=== PATIENT | male | born 1995 | race Caucasian/White ===

== ENCOUNTER 2016-09-09 11:02 | Inpatient (IN) | payer BC, OTHER ==
[~2016-09-09] VITALS: Ht 188 cm; Wt 89.8 kg
[2016-09-10 14:45] VITALS: BP 141/88
[2016-09-10] MEDS ORDERED: THIAMINE HCL 200 MG/2 ML VIAL IM ONE (14:45)
[2016-09-10] MEDS ORDERED: LOPERAMIDE HCL 2 MG CAPSULE PO PRN ×2 (14:45)
[2016-09-10] MEDS ORDERED: ACETAMINOPHEN 325 MG TABLET PO PRN (14:45)
[2016-09-10] MEDS ORDERED: MIRALAX 17 GM POWD.PACK PO PRN (14:45)
[2016-09-10] MEDS ORDERED: ONDANSETRON ODT 4 MG TAB.RAPDIS SL PRN (14:45)
[2016-09-10] MEDS ORDERED: METHOCARBAMOL 750 MG TABLET PO PRN (14:45)
[2016-09-10] MEDS ORDERED: BUPRENORPHINE HCL 2 MG TAB.SUBL SL PRN (14:45)
[2016-09-10] MEDS ORDERED: LORAZEPAM 2 MG/1 ML VIAL IM PRN (14:45)
[2016-09-10] MEDS ORDERED: MAGNESIUM HYDROXIDE 30 ML LIQUID UDC PO PRN (14:45)
[2016-09-10] MEDS ORDERED: DICYCLOMINE HCL 20 MG TABLET PO PRN (14:45)
[2016-09-10] MEDS ORDERED: ONDANSETRON 4 MG/2 ML VIAL IM PRN (14:45)
[2016-09-10] MEDS ORDERED: MAG HYDROX/AL HYDROX/SIMETH 30 ML LIQUID UDC PO PRN (14:45)
[2016-09-10] MEDS ORDERED: LORAZEPAM 1 MG TABLET PO PRN (14:45)
--- NOTE | 2016-09-10 15:00 | NUR ---
Pre-admission Note: Patient received in intake at this time. Alert and oriented x 4. Speech is fast and pressured. Appears disheveled and anxious. Pupils dilated. Able to answer questions appropriately regarding the admission process. Able to answer questions readily regarding the admission process. Patient is able to follow directions appropriately. Denies any allergies. Wishes to be full code. Regular diet. Denies having any seizure history. Patient states that he is here to detox off of opiate, benzodiazepines and methamphetamine. Denies having a PCP. Able to provide urine for UDS. VS BP 141/88, Temp 97.8, RR 17, Pulse 101, RR 20, O2 sat at 98% RA. Addendum: 09/10/16 at 1707 by JENNIFER ARZOLA LVN Pre-admin time is at 1445
--- NOTE | 2016-09-10 15:01 | NUR ---
Admission Note: Admitted a 21 year old male who states that he is here for to detox from opiate, benzodiazepine and methamphetamine under the care of Dr. Fernando Mohan. Alert and oriented x 4. No changes in LOC noted from baseline. Still appears intoxicated but able to ambulate with slow steady gait. Respirations even and unlabored. No SOB noted. Lung sounds clear bilaterally. Skin warm and dry to touch. Body search done. No contraband was found. Skin check done. No skin breakdown noted. Denies any complain of abdominal pain or discomfort. No complains of N/V/D or constipation noted. Reports LBM this am. Bladder non-distended. No complains of dysuria noted. Able to provide urine for UDS. Denies any past medical hx. Has family hx of substance abuse in the family, where his dad was abusing opiates, mainly Heroin. Patient states that he cannot remember his longest period of sobriety but verbalizes that he also does not remember being sober. He reports that has been to treatment 3x since he was 16 years old. Patient was provided education on the unit's policies and protocols. Explained use of call lights and fall preventions. Substance Use History: 1. Heroin - since 14 years old. Injects 3 grams daily x 4 months. Last use was on 09/10/2016 1.5 grams 2. Subaxone - since 13 years old. Sublingually takes 16mg daily when Heroin is not available. Last use was on 09/07/2016 16mg 3. Klonopin - since 14 years old. Orally takes 5 bars each. Last use was on 09/08/2016 x 5 bars 4. Xanax - since 14 years old. Orally takes 2 to 4 bars. Last use was on 09/10/2016 at 0800 3 bars 5. Methadone - since 14 years old. Orally takes 140 mg PO. Last taken "few months ago" when heroin is not available. 6. Methamphetamine - since 14 years old. Injects 1/16 grams daily. Last use was on 09/09/2016 at 0000, 1/16 grams. Treatment History 1. [facility] x 2 weeks. at 16 years old 2. [facility] x 1 month and a half at 17 years old 3. [facility] x [address] Mohan in and examined the patient and orders entered. Patient will be started on 5-day Subutex and 5-day Ativan taper to be started in AM. Orders noted and carried out.
[2016-09-10] MEDS: CLONIDINE HCL 0.1 MG TABLET PO PRN (15:41)
--- NOTE | 2016-09-10 15:41 | NUR ---
Clonidine 0.1mg PO given: Patient was noted with anxiety, chills, restlessness and mild sweats. PRN Clonidine 0.1mg PO given including scheduled Gabapentin and scheduled Vitamin B1 injection.
[2016-09-10] MEDS: GABAPENTIN 300 MG CAPSULE PO SCH ×2 (15:45→21:01)
[2016-09-10 15:52] LABS: BASOPHILS % (AUTO) 0.5 % (0.0-2.0); EOSINOPHILS % (AUTO) 0.6 % (0.0-7.0); HEMOGLOBIN 14.9 G/DL (14.0-18.0); LYMPHOCYTES # (AUTO) 2.6 K/UL (0.8-4.8); LYMPHOCYTES % (AUTO) 34.2 % (20.5-51.5); MEAN CORPUSCULAR HEMOGLOBIN 29.8 UUG (27.0-31.0); MEAN CORPUSCULAR HGB CONC 34 g/dL (32.0-37.0); MEAN CORPUSCULAR VOLUME 88.1 FL (82.0-92.0); MONOCYTES # (AUTO) 0.5 K/UL (0.1-1.30); NEUTROPHILS # (AUTO) 4.6 K/UL (1.8-8.9); NEUTROPHILS % (AUTO) 58.7 % (38.5-71.5); PLATELET COUNT (AUTO) 290 K/UL (150-450); WHITE BLOOD COUNT (AUTO) 7.7 K/UL (4.0-11.2)
[2016-09-10 16:00] VITALS: BP 137/85
[2016-09-10 16:17] LABS: ALANINE AMINOTRANSFERASE 22 U/L (16-63); ALKALINE PHOSPHATASE 115 U/L (50-136); CARBON DIOXIDE 32 mmol/L (21-32); CHLORIDE 104 mmol/L (98-107); CREATININE 0.8 mg/dL (0.6-1.3); GLUCOSE 110 mg/dL (74-106); MAGNESIUM 2.1 mg/dL (1.8-2.4); TOTAL PROTEIN, SERUM 8.2 g/dL (6.4-8.2); UREA NITROGEN, BLOOD 12 mg/dL (7-18)
[2016-09-10 16:20] LABS: ETHANOL < 3 MG/DL (0-0)
[2016-09-10 16:32] LABS: ASPARTATE AMINOTRANSFERASE 38 U/L (15-37)
--- NOTE | 2016-09-10 16:41 | NUR ---
Re-assessment: Per patient, PRN Clonidne was effective in reducing patient's chills, anxiety, sweats and restlessness. VS remain stable.
[2016-09-10 17:03] LABS: THYROID STIMULATING HORMONE 1.966 mIU/mL (0.358-3.740)
[2016-09-10 17:34] LABS: *AMPHETAMINE, URINE POSITIVE (NEGATIVE); *BARBITURATE, URINE NEGATIVE (NEGATIVE); *CANNABINOID, URINE NEGATIVE (NEGATIVE); *COCCAINE, URINE NEGATIVE (NEGATIVE); *OPIATE, URINE POSITIVE (NEGATIVE); *PHENCYCLIDINE SCREEN,URINE NEGATIVE (NEGATIVE)
--- NOTE | 2016-09-10 18:45 | NUR ---
End of Shift Notes: Patient is a 21 year old male admitted for opiate/BZO and methamphetamine dependence who was placed on a 5-day Ativan and 5-day Subutex taper as ordered which will be started today. Denies any past medical hx. NKA. FULL CODE. Regular diet. On fall and seizure precaution. Initial COWS 6/CIWA 3. Last COWS 3/CIWA 1. PRN Clonidine was given at 1500 for restlessness, anxiety, sweats and chills with help after 1 hour. Unable to participate in group due to his withdrawal symptoms. Will continue to monitor closely.
--- NOTE | 2016-09-10 19:15 | NUR ---
Start of Shift Note: Patient is a 21 y/o male admitted today 09/10/16 for Opiate and Benzo dependence. Patient denies any past medical history. No seizure history noted. Patient is on a regular diet with no known food and drug allergies noted. Patient is placed on a 5-day Subutex and 5-day Ativan taper to be started tomorrow. Skin noted to be intact. Last COWS 3 CIWA 1. Pt was given PRN Clonidine during day shift. Patient is alert & oriented x4. No shortness of breath noted. Respiration even & unlabored. Abdomen soft & non-distended. Nausea noted with no episode of vomiting. Patient complains of 3/10 backache & mild backache. Pt presented with stuffy nose, stomach cramps, anxiety and agitation. Patient noted with slight hand tremors. No hallucinations. Patient denies SI/HI. Safety precautions are in place. Bed locked in lowest position. Both side rails up. Call light within pt's reach. Will continue to monitor patient.
[2016-09-10 20:00] VITALS: BP 130/86
[2016-09-10] MEDS: IBUPROFEN 600 MG TABLET PO PRN (21:01)
[2016-09-10] MEDS: diphenhydrAMINE 50 MG CAPSULE PO PRN (21:01)
--- NOTE | 2016-09-10 21:01 | NUR ---
PRN Administration Patient presented with complains of nausea, mild headache, anxiety & agitation. Patient noted with slight tremors. COWS 9 CIWA 8 noted. Vitals taken. B/P 130/86, HR 112. Pt also requesting for medication to help him sleep. PRN Ativan 1 mg, Zofran, Motrin, & Benadryl administered as ordered. Will monitor for effectiveness of medication.
--- NOTE | 2016-09-10 22:01 | NUR ---
PRN Reassessment Patient still awake at this time. Patient lying in bed and appears calm and comfortable. Patient verbalized decreased in anxiety, improved nausea & relief in headache. Patient hand tremors felt. No hallucinations noted. COWS 6 CIWA 4 noted. Will continue to monitor patient.
[2016-09-11] VITALS: BP 115/67
[2016-09-11 04:00] VITALS: BP 94/52
--- NOTE | 2016-09-11 07:40 | NUR ---
End of Shift Note: Patient is a 21 y/o male admitted yesterday 09/10/16 for Opiate and Benzo dependence. Patient denies any past medical history. No seizure history noted. Patient is on a regular diet with no known food and drug allergies noted. Full Code status noted. Fall and Seizure precaution noted. Patient is on a 5-day Subutex and 5-day Ativan taper to be started today. Last COWS 6 CIWA 4. Patient was given PRN Ativan, Zofran, Motrin & Benadryl @ 2101. PRN medications were effective after 1 hour. Pt was compliant with medications. No significant change was noted. Patient remained stable and Vitals remains WNL. Patient was able to sleep for a total of 6 hours. Pt consumed 500ml of fluids. Pt hasnt voided the whole shift nor had a bowel movement. All needs attended & met. Safety precautions are in place. Will endorse pt to day shift nurse.
--- NOTE | 2016-09-11 07:45 | NUR ---
START OF SHIFT Rcvd endorsement from ongoing nurse, client is in room, a/o to name, time, place. He presents with anxious mood, states "I was not able to sleep, my whole body aches, I feel horrible." He reports, chills, stomach cramps, fatigue. Enlarged pupils, flushed face, diaphoresis noted. Encourage client to increase fluid intake as tolerated to facilitate detox. Encourage to attend group therapy for skills to maintain sobriety. PRN Ativan CIWA 9 after an hr 4, Zofran for nausea, Motrin boy aches, & Benadryl for inability to sleep @ 2101. He is to start Ativan/ Subutex taper this am. Client admitted 09/10/16 for Opiate and Benzodiazepine withdrawal. Client denies any seizure history. NKA. Last COWS 6/CIWA 4. Call light within reach. Safety measures rendered. Will continue to monitor.
[2016-09-11] MEDS: MULTIVITAMINS,THERAPEUTIC TABLET PO SCH (08:52)
[2016-09-11] MEDS: FOLIC ACID 1 MG TABLET PO SCH (08:52)
[2016-09-11] MEDS: LORAZEPAM 1 MG TABLET PO SCH ×4 (08:52→21:39)
[2016-09-11] MEDS: GABAPENTIN 300 MG CAPSULE PO SCH ×3 (08:52→21:39)
[2016-09-11] MEDS: BUPRENORPHINE HCL 2 MG TAB.SUBL SL SCH ×4 (08:52→21:39)
[2016-09-11] MEDS: DOCUSATE SODIUM 250 MG CAPSULE PO SCH (08:52)
[2016-09-11] MEDS: THIAMINE HCL 100 MG TABLET PO SCH (08:52)
[2016-09-11 08:55] VITALS: BP 120/69
[2016-09-11] MEDS ORDERED: 5 DAY TAPER BUPRENORPHINE -SERENITY PROTOCOL SL PRN (09:00)
[2016-09-11] MEDS ORDERED: 5 DAY TAPER OF LORAZEPAM -SERENITY PROTOCOL PO PRN (09:00)
[2016-09-11] MEDS ORDERED: TUBERCULIN,PURIF.PROT.DERIV. 5 TU/0.1 ML TEST ID ONE (09:00)
[2016-09-11 12:53] VITALS: BP 141/76
[2016-09-11 14:11] LABS: HEPATITIS B SURFACE AG Negative (Negative)
[2016-09-11 16:05] VITALS: BP 123/69
[2016-09-11] MEDS: CLONIDINE HCL 0.1 MG TABLET PO PRN (16:12)
--- NOTE | 2016-09-11 16:12 | NUR ---
TIKA Bentyl, Clonidine, Robaxin Client reports abdominal cramps, cold/chills, irritability and anxiety, Bentyl 20mg, Clonidine 0.1mg, Robaxin 750mg PO administered. Call light within reach. Will continue to monitor. Addendum: 09/11/16 at 1642 by FIDEL SHORT RN Robaxin given for generalized muscle pain 09/27.
--- NOTE | 2016-09-11 17:12 | NUR ---
Reassessment PRElizabeth Mireles, Clonidine, Robaxin, noted effective Client reports relief of abdominal cramps, cold/chills, he appears less irritable and less anxious, he is walking with his peers to the cafeteria for dinner.
--- NOTE | 2016-09-11 19:15 | NUR ---
Start of Shift Note: Patient is a 21 y/o male admitted today 09/10/16 for Opiate and Benzo dependence. Patient denies any past medical history. No seizure history noted. Patient is on a regular diet with no known food and drug allergies noted. Patient is on a 5-day Subutex and 5-day Ativan taper and tolerating well. Skin noted to be intact. Last COWS 13 CIWA 8. Pt was given PRN Clonidine, Bentyl & Robaxin during day shift. Patient is alert & oriented x4. No shortness of breath noted. Respiration even & unlabored. Abdomen soft & non-distended. No nausea noted. Patient presented with complains of 7/10 backache, chills, runny nose, diarrhea, anxiety & mild headache. Patient noted with slight hand tremors. No hallucinations. Patient denies SI/HI. Patient refused TB skin test. CXR was done with no acute pulmonary disease noted. Safety precautions are in place. Bed locked in lowest position. Both side rails up. Call light within pt's reach. Will continue to monitor patient.
--- NOTE | 2016-09-11 19:20 | NUR ---
END OF SHIFT Endorsed client to incoming nurse, client is currently lying in bed, he is a/o x 4, he presents with depressed mood, flat affect. PRN Robaxin for muscle pain, Bentyl abdominal cramps, Clonidine for irritability, chills and anxiety, noted effective. Last Ativan/Subutex taper medication give, client was able to go down to the cafeteria for dinner after meds. 1st of 5 day Ativan/Subutex taper, tolerating well. Reinforcement needed on group therapy for skills to maintain sobriety, he stated "I'm coming off a lot of drugs, maybe tomorrow." Adequate intake 1600mL, void x 4. Call light within reach. Safety measures rendered.
[2016-09-11 20:00] VITALS: BP 118/78
[2016-09-11] MEDS: IBUPROFEN 600 MG TABLET PO PRN (21:39)
[2016-09-11] MEDS: diphenhydrAMINE 50 MG CAPSULE PO PRN (21:39)
--- NOTE | 2016-09-11 21:39 | NUR ---
PRN Administration Patient presented with complains of diarrhea, 7/10 headache & mild headache. Patient also requesting medication to help him sleep. PRN Immodium, Motrin & Benadryl administered as ordered. Will monitor for effectiveness.
--- NOTE | 2016-09-11 22:39 | NUR ---
PRN Reassessment Patient still awake at this time. Patient verbalized slight relief from pain & discomfort. Patient denies anymore episode of diarrhea. Will continue to monitor patient.
[2016-09-12] VITALS: BP 121/74
[2016-09-12 04:00] VITALS: BP 117/57
--- NOTE | 2016-09-12 07:21 | NUR ---
End of Shift Note: Pt had an uneventful night. Pt continues on his Subutex and Ativan taper and tolerating well. Last COWS 6 CIWA 4. Pt was given PRN Motrin, Benadryl & Immodium. Patient had no more episode of diarrhea after medication was given. Patient remained compliant with medications. Pt still asleep at this time. No s/s of distress noted. Patient was able to sleep for a total of 7 hours. Pt consumed 1390ml of fluids and she voided 3x with 1 loose bowel movement. All needs attended & met. Safety precautions are in place. Will endorse pt to day shift nurse.
[2016-09-12 08:00] VITALS: BP 109/51
--- NOTE | 2016-09-12 08:00 | NUR ---
START OF SHIFT Rcvd endorsement from ongoing nurse, clients is a/o x 4, he presents with blunted affect and depressed mood, client denies any SI/HI. No hx of withdrawal-induced seizure. Client reports abdominal cramps, restless legs, cold/chills, fatigue and no appetite, denies N/V/D. Fine tremors, dilated pupils and flushed face and sweat on bilateral arms noted. Educate clinet to increase fluid intake as tolerated to facilitate detox. Encouraged to attend group therapy for skills to maintain sobriety. Client admitted for benzodiazepine and opiod withdrawal, he is on 2nd of 5 day of Ativan/ Subutex taper, no ASE reported. NKDA, full code, regular diet. Call light within reach. Side rails x 2 up/padded.
[2016-09-12] MEDS ORDERED: LORAZEPAM 1 MG TABLET PO SCH (09:00)
[2016-09-12] MEDS ORDERED: BUPRENORPHINE HCL 2 MG TAB.SUBL SL SCH (09:00)
[2016-09-12] MEDS: DOCUSATE SODIUM 250 MG CAPSULE PO SCH (09:54)
[2016-09-12] MEDS: MULTIVITAMINS,THERAPEUTIC TABLET PO SCH (09:54)
[2016-09-12] MEDS: FOLIC ACID 1 MG TABLET PO SCH (09:54)
[2016-09-12] MEDS: THIAMINE HCL 100 MG TABLET PO SCH (09:54)
[2016-09-12] MEDS: GABAPENTIN 300 MG CAPSULE PO SCH (09:55)
[2016-09-12 12:55] VITALS: BP 125/68
--- NOTE | 2016-09-12 13:10 | NUR ---
Client states that he wants to leave against medical advice (AMA). Client seems indecisive about leaving, but his fiance wants to leave AMA, Risk of leaving AMA discuss with client, but he still wants to leave. Charge nurse, Dr. Mohan. church administrator and liaison planner notified and intervention is in progress in client's room.
[2016-09-12] MEDS ORDERED: HYDROXYZINE PAMOATE 25 MG CAPSULE PO SCH (14:00)
[2016-09-12] MEDS ORDERED: ACETAMINOPHEN ES 500 MG TABLET PO SCH (14:00)
[2016-09-12] MEDS ORDERED: CLONIDINE HCL 0.1 MG TABLET PO SCH (14:00)
[2016-09-12] MEDS ORDERED: KETOROLAC TROMETHAMINE 30 MG INJ IM PRN (14:30)
--- NOTE | 2016-09-12 14:45 | NUR ---
AMA NOTE Client reported that he wanted to leave AMA because he is not ready to continue the treatment. Client educated about the risks and consequences of leaving AMA, client verbalized understanding but still requested to leave. Multiple staff members spoke with client without any success. Client refused VS. Client denies any suicidal/homicidal ideations, skin intact, Dr. Mohan notified. Client was given a list of community resources in case he is in need of help. All belongings returned to client and left the facility on 09/12/16 at 1445.
[2016-09-12] MEDS ORDERED: GABAPENTIN 300 MG CAPSULE PO SCH ×2 (15:00→21:00)
[2016-09-12] MEDS ORDERED: BACLOFEN 20 MG TABLET PO SCH (15:00)
[2016-09-13] MEDS ORDERED: LORAZEPAM 1 MG TABLET PO SCH (09:00)
[2016-09-13] MEDS ORDERED: BUPRENORPHINE HCL 2 MG TAB.SUBL SL SCH ×2 (09:00→15:00)
[2016-09-14] MEDS ORDERED: BUPRENORPHINE HCL 2 MG TAB.SUBL SL SCH (09:00)
[2016-09-14] MEDS ORDERED: LORAZEPAM 1 MG TABLET PO SCH (09:00)
[2016-09-15] MEDS ORDERED: LORAZEPAM 1 MG TABLET PO SCH (09:00)
[2016-09-15] MEDS ORDERED: BUPRENORPHINE HCL 2 MG TAB.SUBL SL SCH (09:00)
== END 2016-09-12 14:45 | disposition left against medical advice (07) | DRG 894 ==
LOC: SRC 09-10 13:23
PROVIDERS: ADMIT Internal Medicine; ATTEND Internal Medicine
PROC: HZ2ZZZZ Detoxification Services for Substance Abuse Treatment (ICD-10-PCS; principal; 2016-09-10)
PROC: HZ51ZZZ Individual Psychotherapy for Substance Abuse Treatment, Behavioral (ICD-10-PCS; 2016-09-12)
DX: F11.23 Opioid dependence with withdrawal (principal); F13.230 Sedative, hypnotic or anxiolytic dependence with withdrawal, uncomplicated; F41.1 Generalized anxiety disorder; Z59.0 Homelessness; F17.210 Nicotine dependence, cigarettes, uncomplicated; F15.93 Other stimulant use, unspecified with withdrawal
CPT/HCPCS: 36415; 71010; 80307; 80324; 80361; 83735; 84443; 85025; 86592; 86705; 86803; 87340; 87806; G0480; J3411; Q0162; Q0163

== ENCOUNTER 2016-10-28 16:01 | Inpatient (IN) | payer BC, OTHER ==
[~2016-10-28] VITALS: Ht 188 cm; Wt 91.6 kg
--- NOTE | 2016-10-28 19:38 | NUR ---
INTAKE ASSESSMENT BP:143/66, HR:100, RR: 18, SpO2 96%, T:98, Pt denies pain. Pt is in stable condition and able to be admitted on the unit. Unit protocols regarding medications, and vital signs every four hours were explained. Pt verbalized understanding. Will continue admission upon arrival on the unit.
[2016-10-28] MEDS ORDERED: MIRALAX 17 GM POWD.PACK PO PRN (19:45)
[2016-10-28] MEDS ORDERED: ONDANSETRON ODT 4 MG TAB.RAPDIS SL PRN (19:45)
[2016-10-28] MEDS ORDERED: LOPERAMIDE HCL 2 MG CAPSULE PO PRN ×2 (19:45)
[2016-10-28] MEDS ORDERED: BUPRENORPHINE HCL 2 MG TAB.SUBL SL PRN (19:45)
[2016-10-28] MEDS ORDERED: ACETAMINOPHEN 325 MG TABLET PO PRN (19:45)
[2016-10-28] MEDS ORDERED: LORAZEPAM 1 MG TABLET PO PRN (19:45)
[2016-10-28] MEDS ORDERED: IBUPROFEN 600 MG TABLET PO PRN (19:45)
[2016-10-28] MEDS ORDERED: ONDANSETRON 4 MG/2 ML VIAL IM PRN (19:45)
[2016-10-28] MEDS ORDERED: MAG HYDROX/AL HYDROX/SIMETH 30 ML LIQUID UDC PO PRN (19:45)
[2016-10-28] MEDS ORDERED: DICYCLOMINE HCL 20 MG TABLET PO PRN (19:45)
[2016-10-28] MEDS ORDERED: HYDROXYZINE PAMOATE 25 MG CAPSULE PO PRN (19:45)
[2016-10-28 20:00] VITALS: BP 143/66
[2016-10-28 20:19] LABS: BASOPHILS # (AUTO) 0.1 K/uL (0.0-8.0); BASOPHILS % (AUTO) 0.6 % (0.0-2.0); EOSINOPHILS % (AUTO) 0.4 % (0.0-7.0); HEMATOCRIT 44.3 % (40-50); HEMOGLOBIN 14.9 G/DL (14.0-18.0); LYMPHOCYTES # (AUTO) 2.1 K/UL (0.8-4.8); LYMPHOCYTES % (AUTO) 21.3 % (20.5-51.5); MEAN CORPUSCULAR HEMOGLOBIN 29.7 UUG (27.0-31.0); MEAN CORPUSCULAR HGB CONC 34 g/dL (32.0-37.0); MEAN CORPUSCULAR VOLUME 88.4 FL (82.0-92.0); MONOCYTES # (AUTO) 1.2 K/UL (0.1-1.30); MONOCYTES % (AUTO) 12.4 % (0.0-11.0); NEUTROPHILS # (AUTO) 6.6 K/UL (1.8-8.9); NEUTROPHILS % (AUTO) 65.3 % (38.5-71.5); PLATELET COUNT (AUTO) 321 K/UL (150-450); RED BLOOD CELL COUNT(AUTO) 5.01 MIL/UL (4.7-6.1)
--- NOTE | 2016-10-28 20:30 | NUR ---
ADMISSION NOTE Pt arrived ambulatory from [facility] Intake to the third floor accompanied by a BUSINESS CONTINUITY MANAGER at 2009. Pt is a 21 year old male admitted on 10/28/16 for Benzodiazepine, Heroin, Subutex and Methamphetamine dependency. Pt is full code with NKA. Pt reports a PMHx ofanxiety and seizure 1 year ago related to withdrawal. Pt reports a PCP by the name of Dr. Wm Garcia and Dr. Wolff which is his Suboxone doctor. Pt reports using methadone 50 mg for 2 years, then 4 months ago started on Suboxone for maintenance of withdrawal symptoms. Pt reports a home medication of Subutex 16 mg and has been taking it daily for one month but reports relapsing on heroin. He reports his longest sobriety was for one month, one month ago. He was at a Detox in [place] one month ago and was at [facility] in August 2016 but left AMA. He describes his current use as: 1. Xanax 8-12 mg daily for 2 years Last dose: 2 bars on 10/28/16 2. Ativan intermittently Last dose: 4 pills on 10/28/16 3. Heroin IV intermittently for 1 month Last dose: few shots on 10/28/16 4. Methamphetamine IV intermittently for one month Last dose: 10/28/16. Pt describes his withdrawal symptoms as: seizures, sweats, insomnia. Upon assessment, pt is alert and oriented x4, anxious and cooperative. Speech is hyperverbal, clear and audible. Heart rate increased ( pt complains of anxiety), denies SOB or chest pain. Breathing is even and unlabored, lung sounds clear. Abdomen is soft and non distended, bowel sounds present. Last BM 10/28/16. Pt reports BM is regular. Pts skin is warm, dry and intact. MD made aware of pts admission. Pt oriented to room and unit. Pt is safe with bed locked in lowest position, side rails up x2 and call light within reach. Will continue to monitor.
[2016-10-28 20:32] LABS: ETHANOL < 3 MG/DL (0-0)
[2016-10-28 20:36] LABS: ALANINE AMINOTRANSFERASE 27 U/L (16-63); ALKALINE PHOSPHATASE 117 U/L (50-136); ASPARTATE AMINOTRANSFERASE 27 U/L (15-37); CARBON DIOXIDE 29 mmol/L (21-32); CHLORIDE 97 mmol/L (98-107); GLUCOSE 116 mg/dL (74-106); MAGNESIUM 1.8 mg/dL (1.8-2.4); POTASSIUM 3.5 mmol/L (3.5-5.1); TOTAL PROTEIN, SERUM 8.3 g/dL (6.4-8.2); UREA NITROGEN, BLOOD 13 mg/dL (7-18)
[2016-10-28 22:42] LABS: *AMPHETAMINE, URINE POSITIVE (NEGATIVE); *BARBITURATE, URINE POSITIVE (NEGATIVE); *CANNABINOID, URINE NEGATIVE (NEGATIVE); *COCCAINE, URINE NEGATIVE (NEGATIVE); *OPIATE, URINE POSITIVE (NEGATIVE); *PHENCYCLIDINE SCREEN,URINE NEGATIVE (NEGATIVE)
[2016-10-28] MEDS: METHOCARBAMOL 750 MG TABLET PO PRN (23:49)
[2016-10-28] MEDS: CLONIDINE HCL 0.1 MG TABLET PO PRN (23:49)
--- NOTE | 2016-10-28 23:49 | NUR ---
PRN ATIVAN, CLONIDINE, ROBAXIN, ZOFRAN Pt complains of agitation, body aches, anxiety, and nausea. HR:100. PRN Ativan 2 mg, Clonidine, Robaxin and Zofran administered as ordered. Breathing is even and unlabored, safety measures in place. Will monitor effectiveness.
[2016-10-29] VITALS: BP 135/88
--- NOTE | 2016-10-29 | NUR ---
NURSING NOTE Pt's UDS positive for barbituates. Pt is poor historian but reports he was at a recovery center " few weeks ago" and was given phenobarbital.
--- NOTE | 2016-10-29 00:49 | NUR ---
PRN REASSESSMENT PRN medications effective. Pt lying in bed with eyes closed noted to be asleep. No facial grimacing. Respirations 16, breathing even and unlabored. Safety measures in place. Will continue to monitor.
[2016-10-29] MEDS ORDERED: BUPR8TAB4 SL (03:11)
--- NOTE | 2016-10-29 04:00 | NUR ---
VITALS REFUSED, COWS/CIWA DEFERRED 0400 vitals refused, COWS and CIWA deferred d/t pt lying in bed with eyes closed noted to be asleep. No facial grimacing noted. Respirations 16, breathing is even and unlabored. Safety measures in place. Will monitor.
--- NOTE | 2016-10-29 07:16 | NUR ---
END OF SHIFT Pt is a 21 year old male admitted on 10/28/16 for Benzo, Heroin, Subutex and Methamphetamine dependency. Pt is full code with NKA. He reports a PMHx of seizure 1 year ago related to withdrawal and anxiety. At 2349 he received PRN Zofran, Ativan, Robaxin and Clonidine. He slept a total of 7 hrs, Intake: 796mL, Void: x1, BM:0, COWS:8, CIWA:9. Pt remains alert and oriented x4, breathing is even and unlabored, safety measures in place. Endorsed to oncoming shift.
--- NOTE | 2016-10-29 07:37 | NUR ---
BEGINNING OF SHIFT Patient endorsement report received from retail shift supervisor nurse, all pertinent information discussed. Patient is a 21 year old male admitted for BZO dependence, And substance use history of: Opiate and methamphetamine, Patient currently with no ongoing taper but is with ongoing PRN medications for s/sx of withdrawal. Full code, NKA, Regular diet. Per retail shift supervisor patient received PRN: Zofran, Robaxin, and clonidine, during retail shift supervisor, medication effective as per retail shift supervisor. Slept for 7 hours. Last CIWA: 9 and last cow score of: 8. On fall and seizure precautions. Educated patient on the current plan of care for the day and his medication regimen, Safety measures in place. call light kept with in reach, will continue to monitor.
[2016-10-29 08:27] VITALS: BP 102/87
[2016-10-29] MEDS: METHOCARBAMOL 750 MG TABLET PO PRN ×2 (08:36→22:09)
[2016-10-29] MEDS: CLONIDINE HCL 0.1 MG TABLET PO PRN ×2 (08:36→22:10)
[2016-10-29] MEDS: MULTIVITAMINS,THERAPEUTIC TABLET PO SCH (08:36)
--- NOTE | 2016-10-29 08:36 | NUR ---
PRN ROBAXIN/CLONIDINE/VISTARIL patient reports muscle aches, and increase anxiety and agitation, provided patient with non pharmacological interventions with no relief, administered Robaxin, clonidine, and Vistaril as ordered, will monitor effectiveness of medication patients vital signs WNL. will continue to monitor.
[2016-10-29] MEDS ORDERED: TUBERCULIN,PURIF.PROT.DERIV. 5 TU/0.1 ML TEST ID ONE (09:00)
--- NOTE | 2016-10-29 09:36 | NUR ---
ROBAXIN/CLONIDINE/VISTARIL REASSESSMENT Patient reports medication effective, decrease in muscle aches and reports feels less anxious and agitated, safety measures in place. will continue to monitor. VS WNL.
[2016-10-29 12:44] VITALS: BP 116/60
[2016-10-29] MEDS: BUPRENORPHINE HCL 2 MG TAB.SUBL SL SCH ×3 (12:48→22:10)
[2016-10-29] MEDS: LORAZEPAM 1 MG TABLET PO SCH ×3 (12:48→22:09)
[2016-10-29 17:10] VITALS: BP 118/76
--- NOTE | 2016-10-29 18:47 | NUR ---
END OF SHIFT Patient alert and oriented x4, vital signs stable during shift. Patient compliant with therapeutic plan of care during shift. Patient was started on a 5 day Ativan and 5 day Subutex taper as ordered , and is currently on day 1 of taper, well tolerate no ASE noted. Taper was started at approximately 1300. Encouraged adequate PO fluid intake as tolerated. 0900 assessment patient presented with: Heart rate of 89, c/o chills, mild bone and joint aches, mild nausea, irritable, anxiety, barely sweating, mild agitation with cow score of: 7 and ciwas score of: 7; 1300 assessment patient presented with: sweats, flushed, mild bone and joint aches, stuffy nose, mild nausea, irritable, anxiety, goosebump, and mild agitation with cow score of: 11 and ciwa score of: 8; 1700 assessment patient presented with: heart, rate: 103 , sweats, flushed, mild bone and joint aches, stuffy nose, mild nausea, irritable, anxiety, goosebump, and mild agitation with cow score of: 13 and ciwa score of:8 .Patient received PRN: Robaxin, Clonidine, and Vistaril during shift, medications effective. Encouraged to attend group therapies/sessions to learn new coping skills to prevent relapse. Safety measures in place, call light kept with in reach. Patient endorsed to bag sewer nurse, all pertinent information discussed.
--- NOTE | 2016-10-29 19:15 | NUR ---
START OF SHIFT Received 21 year old male patient admitted on 10/28/16 for Benzodiazepine, Opiate, Subtuex and Methamphetamine dependency. Pt is full code with NKA. Pt reports a PMHx of anxiety, and seizure 1 year ago related to withdrawal. Pt reports using Xanax 8-12 mg daily for 2 years. Last dose was 2 bars on 10/28/16. Ativan intermittently. Last dose was 4 pills on 10/28/16. Heroin IV intermittently. Last dose was few shots on 10/28/16. Subutex SL 16 mg daily for 1 month. Last dose was 16 mg on 10/28/16. Meth IV intermittently. Last dose on 10/28/16. Pt placed on 5 day Ativan and 5 day Subutex taper started on 10/29/16 and tolerating well. Per endorsement, pt received PRN Robaxin, Clonidine and Vistaril. Pt is alert and oriented x4, breathing is even and unlabored. Safety measures in place. Will continue to monitor.
[2016-10-29 20:00] VITALS: BP 124/60
[2016-10-29] MEDS: GABAPENTIN 300 MG CAPSULE PO SCH (22:10)
--- NOTE | 2016-10-29 22:10 | NUR ---
PRN CLONIDINE/ROBAXIN Pt complains of anxiety,agitation and body aches. PRN Clonidine and Robaxin administered as ordered. Breathing is even and unlabored, safety measures in place. Will monitor.
--- NOTE | 2016-10-29 23:10 | NUR ---
PRN REASSESSMENT PRN medications effective. Pt lying in bed with eyes closed noted to be asleep. Respirations 16, breathing is even and unlabored. Safety measures in place. Will monitor.
--- NOTE | 2016-10-30 | NUR ---
VITALS REFUSED, COWS and CIWA DEFERRED 0000 vitals refused. COWS and CIWA deferred d/t pt lying in bed with eyes closed noted to be asleep. Respirations 16, breathing is even and unlabored. Safety measures in place. Will monitor.
--- NOTE | 2016-10-30 04:00 | NUR ---
VITALS REFUSED, COWS and CIWA DEFERRED 0400 vitals refused. COWS and CIWA deferred d/t pt lying in bed with eyes closed noted to be asleep. Respirations 16, breathing is even and unlabored. Safety measures in place. Will continue to monitor.
[2016-10-30 06:07] LABS: HEPATITIS B SURFACE AG Negative (Negative)
--- NOTE | 2016-10-30 07:09 | NUR ---
END OF SHIFT Pt is a 21 year old male patient admitted on 10/28/16 for Benzodiazepine, Opiate, Subtuex and Methamphetamine dependency. Pt is full code with NKA. Pt reports a PMHx of anxiety, and seizure 1 year ago related to withdrawal. Pt continues on 5 day Ativan and 5 day Subutex taper started on 10/29/16 and tolerating well. Pt received PRN Robaxin, and Clonidine. He slept a total of 6 hrs, Intake: 1210 mL, Void: x3, BM:0. COWS10, CIWA:8. Pt remains alert and oriented x4, breathing is even and unlabored. Safety measures in place. Endorsed to AM shift.
--- NOTE | 2016-10-30 07:20 | NUR ---
Start of Shift Dumpcart Driver received report on 21 year old male admitted on for Benzodiazepine, Heroin, Methamphetamine and Subutex detoxification. Pt is a full code, NKA and on a regular diet. Pt reports PMH of anxiety and a past seizure, approximately 1 year ago. Pt placed on seizure precautions. Pt currently on a 5 day Ativan and 5 day Subutex taper. Dumpcart Driver encounters pt in bed resting with eyes closed. Respiration even and unlabored with rise and chest noted. Bed in low position, wheels locked, with side rails up x2. Call light within in reach. All safety measures in place according to hospital policy.
[2016-10-30 08:02] VITALS: BP 109/61
[2016-10-30] MEDS ORDERED: LORAZEPAM 1 MG TABLET PO SCH (09:00)
[2016-10-30] MEDS: GABAPENTIN 300 MG CAPSULE PO SCH ×3 (09:32→21:29)
[2016-10-30] MEDS: MULTIVITAMINS,THERAPEUTIC TABLET PO SCH (09:32)
[2016-10-30] MEDS: BUPRENORPHINE HCL 2 MG TAB.SUBL SL SCH ×3 (09:33→21:29)
[2016-10-30 12:54] VITALS: BP 125/83
[2016-10-30] MEDS: DIAZEPAM 10 MG TABLET PO SCH ×2 (15:55→21:29)
--- NOTE | 2016-10-30 15:55 | NUR ---
Medication Held - 1500 Trust Manager Assistant reported sedation level of pt to MD whom concurred with promotion writer, to hold off on administration of scheduled medication. Will continue to monitor, support and encourage according to plan of care.
[2016-10-30 16:45] VITALS: BP 89/58
--- NOTE | 2016-10-30 19:06 | NUR ---
End of Shift Radiation Officer provided report on 21 year old male admitted on 10/28/16 for Benzodiazepine, Heroin, Methamphetamine and Subutex detoxification. Pt is a full code, NKA and on a regular diet. Pt reports PMH of anxiety and a past seizure, approximately 1 year ago. Pt placed on seizure precautions. Pt currently on a 4 day Valium taper to coincide with the Subutex taper. and 5 day Subutex taper. Pt has been somnolent all of the day, having awoken for lunch and to speak with the MD about medications. Pt remains isolative to room and bed. Pt unable to speak without slurring word while speaking with MD. 1500 doses of medication where held d/t sedation, MD aware. Bed in low position, wheels locked, with side rails up x2. Call light within in reach. All safety measures in place according to hospital policy. No further comments, questions or concerns voiced by oncoming nurse.
--- NOTE | 2016-10-30 19:15 | NUR ---
START OF SHIFT NOTE : 21 year old male admitted on for Benzodiazepine, Heroin, Methamphetamine and Subutex detoxification. Pt is a full code, NKA and on a regular diet. Pt reports PMH of anxiety and a past seizure, approximately 1 year ago. Pt placed on seizure precautions. Pt currently on a 5 day Ativan and 5 day Subutex taper on 10/30/2016. Pt has been somnolent all of the day, having awoken for lunch and to speak with the MD about medications. Pt remains isolative to room and bed. Respiration even and unlabored with rise and chest noted. Safety measures in place : bed on lowest position with side rails x2 up for safety, call light within reach. Will continue to monitor closely and offer help.
[2016-10-30 20:00] VITALS: BP 115/48
--- NOTE | 2016-10-30 21:00 | NUR ---
PRN BENADRYL, ROBAXINE Pt. complains of sleeplessness , muscle spasm. PRN BENADRYL, ROBAXINE given as ordered.Safety measures in place : bed on lowest position with side rails x2 up for safety, call light within reach. Will continue to monitor closely and offer help.
[2016-10-30] MEDS: diphenhydrAMINE 50 MG CAPSULE PO PRN (21:29)
[2016-10-30] MEDS: METHOCARBAMOL 750 MG TABLET PO PRN (21:29)
--- NOTE | 2016-10-30 22:00 | NUR ---
REASSESSMENT MILLRE STODDARD Pt. is sleeping , RR=16 unlabored and even. Safety measures in place : bed on lowest position with side rails x2 up for safety, call light within reach. Will continue to monitor closely and offer help.
--- NOTE | 2016-10-31 06:35 | NUR ---
END OF SHIFT NOTE : 21 year old male admitted on for Benzodiazepine, Heroin, Methamphetamine and Subutex detoxification. Pt is a full code, NKA and on a regular diet. Pt reports PMH of anxiety and a past seizure, approximately 1 year ago. Pt placed on seizure precautions. Pt currently on a 5 day Ativan and 5 day Subutex taper on 10/30/2016. Pt remains compliant with the treatment plan. PRN BENADRYL, ROBAXINE given during my shift. V/S remain WNL. RR=16, even and unlabored, lungs clear upon auscultation, abdomen soft and non- distended. Pt denies nausea, vomiting and diarrhea. LAST CIWA= 4 ,COWS= 4 at 0400 , INTAKE= 1237 ml, voided x 3, slept 6 hours. Safety measures in place : bed on lowest position with side rails x2 up for safety, call light within reach. Will continue to monitor closely and offer help.
--- NOTE | 2016-10-31 07:09 | NUR ---
Start of Shift Endorsement received from nightshift nurse. Pt has been admitted for Xanax and Heroin dependence. Pt has been placed on a 5 day Subutex and 4 day Valium taper. Pt is tolerating the tapers and mildly withdrawing AEB COWS 4, CIWA 4 at 0400. Pt received PRN Benadryl and Robaxin. Pt reports sleeping 6 hours. Pt reports Hx of a withdrawal caused seizures. VS WNL. full Code. . PT is alert and oriented x4. Pt is in STABLE condition at this time. Remains compliant with medication and diet regimen. All needs have been met, All safety measures in place per hospital policy. Bed in lowest position, side rails up x2, call-light within reach. Will continue to monitor
[2016-10-31 08:00] VITALS: BP 96/62
[2016-10-31] MEDS ORDERED: BUPRENORPHINE HCL 2 MG TAB.SUBL SL SCH (09:00)
[2016-10-31] MEDS ORDERED: LORAZEPAM 1 MG TABLET PO SCH (09:00)
[2016-10-31] MEDS: GABAPENTIN 300 MG CAPSULE PO SCH ×3 (09:18→15:00)
[2016-10-31] MEDS: DIAZEPAM 5 MG TABLET PO SCH ×4 (09:18→21:30)
[2016-10-31] MEDS: MULTIVITAMINS,THERAPEUTIC TABLET PO SCH (09:19)
[2016-10-31 13:00] VITALS: BP 118/73
[2016-10-31] MEDS: BUPRENORPHINE HCL 2 MG TAB.SUBL SL SCH ×2 (14:13→21:31)
--- NOTE | 2016-10-31 15:28 | NUR ---
Gabapentin held Already administered previous scheduled dose of gabapentin scheduled for 1500.
[2016-10-31] MEDS: BACLOFEN 10 MG TABLET PO SCH ×2 (15:46→21:30)
[2016-10-31 16:00] VITALS: BP 126/67
--- NOTE | 2016-10-31 18:52 | NUR ---
End of Shift Endorsement given to nightshift nurse. Pt has been admitted for Xanax and Heroin dependence. Pt has been placed on a 5 day Subutex and 4 day Valium taper. Pt is tolerating the tapers and mildly withdrawing AEB COWS 3, CIWA 3 at 1600. Pt did not receive any PRN Medications. Pt has been educated on medication regimen, S/E of medications and withdrawals. Encouraged pt to participated in groups and activities and to increase the intake of fluids. Pt participated in groups and activities. Intake: 2920ml, Void x3, BM x1. Pt reports Hx of a withdrawal caused seizures. VS WNL. full Code. . PT is alert and oriented x4. Pt is in STABLE condition at this time. Remains compliant with medication and diet regimen. All needs have been met, All safety measures in place per hospital policy. Bed in lowest position, side rails up x2, call-light within reach. Will continue to monitor
--- NOTE | 2016-10-31 19:15 | NUR ---
START OF SHIFT NOTE : Pt. is 21 year old male admitted on for Benzodiazepine, Heroin, Methamphetamine and Subutex detoxification. Pt is a full code, NKA and on a regular diet. Pt reports PMH of anxiety and a past seizure, approximately 1 year ago. Pt placed on seizure precautions. Pt currently on a 5 day Ativan and 5 day Subutex taper on 10/30/2016. Pt. participates in meetings and activities. VS stable , RR=16, Respiration even and unlabored with rise and chest noted. Safety measures in place : bed on lowest position with side rails x2 up for safety, call light within reach. Will continue to monitor closely and offer help.
[2016-10-31 20:00] VITALS: BP 142/82
[2016-10-31] MEDS ORDERED: GABAPENTIN 300 MG CAPSULE PO SCH (21:00)
[2016-10-31] MEDS ORDERED: CLONIDINE HCL 0.1 MG TABLET PO SCH (21:00)
[2016-10-31] MEDS: METHOCARBAMOL 750 MG TABLET PO PRN (21:29)
[2016-10-31] MEDS: diphenhydrAMINE 50 MG CAPSULE PO PRN (21:30)
--- NOTE | 2016-10-31 22:00 | NUR ---
REASSESSMENT MILLER STODDARD Pt. is sleeping , RR=16 unlabored and even. Safety measures in place : bed on lowest position with side rails x2 up for safety, call light within reach. Will continue to monitor closely and offer help.
--- NOTE | 2016-11-01 06:44 | NUR ---
END OF SHIFT NOTE : Pt. is 21 year old male admitted on for Benzodiazepine, Heroin, Methamphetamine and Subutex detoxification. Pt is a full code, NKA and on a regular diet. Pt reports PMH of anxiety and a past seizure, approximately 1 year ago. Pt placed on seizure precautions. Pt currently on a 5 day Ativan and 5 day Subutex taper on 10/30/2016. Pt. participates in meetings and activities. VS stable , RR=16, Respiration even and unlabored with rise and chest noted. Pt remains compliant with the treatment plan. PRN BENADRYL, ROBAXINE given during my shift. V/S remain WNL. RR=16, even and unlabored, lungs clear upon auscultation, abdomen soft and non- distended. Pt denies nausea, vomiting and diarrhea. LAST CIWA=3 ,COWS=3 at 0400 , [id number]=020 ml, voided x 1, slept 6 hours. Safety measures in place : bed on lowest position with side rails x2 up for safety, call light within reach. Will continue to monitor closely and offer help.
--- NOTE | 2016-11-01 07:10 | NUR ---
Start of Shift Endorsement received from nightshift nurse. Pt has been admitted for Xanax and Heroin dependence. Pt has been placed on a 5 day Subutex and 4 day Valium taper. Pt is tolerating the tapers and mildly withdrawing AEB COWS 3, CIWA 3 at 0400. Pt received PRN Benadryl and Robaxin. Pt reports sleeping 8 hours. PT reports feeling rested. Pt appears to be calm and watching TV. VS WNL. full Code. . PT is alert and oriented x4. Pt is in STABLE condition at this time. Remains compliant with medication and diet regimen. All needs have been met, All safety measures in place per hospital policy. Bed in lowest position, side rails up x2, call-light within reach. Will continue to monitor
[2016-11-01 08:03] VITALS: BP 102/62
[2016-11-01] MEDS: BACLOFEN 10 MG TABLET PO SCH (08:48)
[2016-11-01] MEDS: GABAPENTIN 300 MG CAPSULE PO SCH ×3 (08:48→21:29)
[2016-11-01] MEDS: MULTIVITAMINS,THERAPEUTIC TABLET PO SCH (08:48)
[2016-11-01] MEDS: DIAZEPAM 5 MG TABLET PO SCH ×3 (08:48→21:28)
[2016-11-01] MEDS: BUPRENORPHINE HCL 2 MG TAB.SUBL SL SCH ×3 (08:49→21:28)
[2016-11-01] MEDS ORDERED: LORAZEPAM 1 MG TABLET PO SCH (09:00)
--- NOTE | 2016-11-01 11:06 | NUR ---
Therapist prompted client about group times. Client stated he will try to attend groups today.
[2016-11-01] MEDS ORDERED: DIAZEPAM 5 MG TABLET PO ONE (11:30)
[2016-11-01 12:00] VITALS: BP 115/73
[2016-11-01] MEDS ORDERED: BUPRENORPHINE HCL 2 MG TAB.SUBL SL ONE (12:00)
[2016-11-01] MEDS: BACLOFEN 20 MG TABLET PO SCH ×2 (15:34→21:28)
[2016-11-01] MEDS: CLONIDINE HCL 0.1 MG TABLET PO SCH ×2 (15:34→21:28)
[2016-11-01 16:00] VITALS: BP 108/63
--- NOTE | 2016-11-01 19:01 | NUR ---
End of Shift Endorsement given to nightshift nurse. Pt has been admitted for Xanax and Heroin dependence. Pt has been placed on a 5 day Subutex and 4 day Valium taper. Pt is tolerating the tapers and mildly withdrawing AEB COWS 3, CIWA 3 at 1600. Pt did not receive any PRN Medications. Pt received a one time dose of Subutex 4mg and Valium 5mg per Dr. Delatorre. Educated pt on S/E of medications and symptoms to report immediately. Pt participated in groups and activities. Intake: 4235ml, Void x6, BM x1. Pt reports Hx of a withdrawal caused seizures. VS WNL. full Code. . PT is alert and oriented x4. Pt is in STABLE condition at this time. Remains compliant with medication and diet regimen. All needs have been met, All safety measures in place per hospital policy. Bed in lowest position, side rails up x2, call-light within reach. Will continue to monitor
--- NOTE | 2016-11-01 19:15 | NUR ---
START OF SHIFT NOTE : Pt. is 21 year old male admitted on for Benzodiazepine, Heroin, Methamphetamine and Subutex detoxification. Pt is a full code, NKA and on a regular diet. Pt reports PMH of anxiety and a past seizure, approximately 1 year ago. Pt placed on seizure precautions. Pt currently on a 5 day Ativan and 5 day Subutex taper on 10/30/2016. Pt. participates in meetings and activities. He received a one time dose of Subutex 4mg and Valium 5mg per Dr. Delatorre at t6he day time. VS stable , RR=16, Respiration even and unlabored with rise and chest noted. Safety measures in place : bed on lowest position with side rails x2 up for safety, call light within reach. Will continue to monitor closely and offer help.
[2016-11-01 20:00] VITALS: BP 119/75
[2016-11-01] MEDS: diphenhydrAMINE 50 MG CAPSULE PO PRN (21:28)
[2016-11-01] MEDS: METHOCARBAMOL 750 MG TABLET PO PRN (21:28)
--- NOTE | 2016-11-02 06:37 | NUR ---
END OF SHIFT NOTE : Pt. is 21 year old male admitted on for Benzodiazepine, Heroin, Methamphetamine and Subutex detoxification. Pt is a full code, NKA and on a regular diet. Pt reports PMH of anxiety and a past seizure, approximately 1 year ago. Pt placed on seizure precautions. Pt currently on a 5 day Ativan and 5 day Subutex taper on 10/30/2016. Pt. participates in meetings and activities. Pt remains compliant with the treatment plan. PRN BENADRYL, ROBAXIN given during my shift. V/S remain WNL. RR=16, even and unlabored, lungs clear upon auscultation, abdomen soft and non- distended. Pt denies nausea, vomiting and diarrhea. LAST CIWA=2 ,COWS=2 at 0400 , [id number] ml, voided x3 , slept 5 hours. Safety measures in place : bed on lowest position with side rails x2 up for safety, call light within reach. Will continue to monitor closely and offer help.
--- NOTE | 2016-11-02 07:29 | NUR ---
Start of shift note; Received report from night nurse. Patient is a 21 year old male admitted on 10/28/16 for Benzo and Opiate withdrawals. Patient was placed on a 5 day Subutex taper and 4 day Valium taper, no adverse reactions noted. Patient reported history of anxiety and seizure d/t withdrawals 1 year ago. Patient's last CIWA score is 2 and last COWS score is 2 at 0400. Patient slept for 5 hours. Patient is on fall and seizure precautions. Bed in lowest position, call light within reach. Will continue to monitor patient.
[2016-11-02 08:00] VITALS: BP 104/68
[2016-11-02] MEDS ORDERED: DIAZEPAM 5 MG TABLET PO SCH (09:00)
[2016-11-02] MEDS ORDERED: LORAZEPAM 1 MG TABLET PO SCH (09:00)
[2016-11-02] MEDS: GABAPENTIN 300 MG CAPSULE PO SCH ×3 (09:28→20:30)
[2016-11-02] MEDS: MULTIVITAMINS,THERAPEUTIC TABLET PO SCH (09:28)
[2016-11-02] MEDS: DIAZEPAM 5 MG TABLET PO SCH ×3 (09:28→20:30)
[2016-11-02] MEDS: CLONIDINE HCL 0.1 MG TABLET PO SCH ×3 (09:28→20:31)
[2016-11-02] MEDS: BACLOFEN 20 MG TABLET PO SCH ×3 (09:28→20:31)
[2016-11-02] MEDS: BUPRENORPHINE HCL 2 MG TAB.SUBL SL SCH ×2 (09:29→20:30)
[2016-11-02 12:00] VITALS: BP 117/77
[2016-11-02 16:00] VITALS: BP 123/61
--- NOTE | 2016-11-02 18:10 | NUR ---
End of shift note; Patient is AOX4. Patient is a 21 year old male admitted on 10/28/16 for Benzo and Opiate withdrawals. Patient was placed on a 5 day Subutex taper and 4 day Valium taper, no adverse reactions noted. Patient reported history of anxiety and seizure d/t withdrawals 1 year ago. Patient remained compliant with treatment plan. Medications were effective in reducing withdrawal symptoms. Met all needs.
[2016-11-02 20:00] VITALS: BP 130/81
[2016-11-02] MEDS: METHOCARBAMOL 750 MG TABLET PO PRN (20:30)
[2016-11-02] MEDS: diphenhydrAMINE 50 MG CAPSULE PO PRN (20:31)
--- NOTE | 2016-11-03 06:51 | NUR ---
END OF SHIFT NOTE : Pt. is 21 year old male admitted on for Benzodiazepine, Heroin, Methamphetamine and Subutex detoxification. Pt is a full code, NKA and on a regular diet. Pt reports PMH of anxiety and a past seizure, approximately 1 year ago. Pt placed on seizure precautions. Pt currently on a 5 day Ativan and 5 day Subutex taper on 10/30/2016. Pt. participates in meetings and activities. Pt remains compliant with the treatment plan. PRN BENADRYL, ROBAXIN given during my shift. V/S remain WNL. RR=16, even and unlabored, lungs clear upon auscultation, abdomen soft and non- distended. Pt denies nausea, vomiting and diarrhea. LAST CIWA=1 ,COWS=2 at 0400 , [id number] ml, voided x2 , slept 6 hours. Safety measures in place : bed on lowest position with side rails x2 up for safety, call light within reach. Will continue to monitor closely and offer help.
--- NOTE | 2016-11-03 07:09 | NUR ---
Start of Shift Endorsement received from nightshift nurse. Pt has been admitted for Xanax and Heroin dependence. Pt has been placed on a 5 day Subutex and 4 day Valium taper. Pt is tolerating the tapers and mildly withdrawing AEB COWS 2, CIWA 1 at 0400. Pt did not receive any prn medications. Pt is expected to complete his taper today. Pt reports sleeping 9 hours. PT reports readiness for for discharge. VS WNL. full Code. . PT is alert and oriented x4. Pt is in STABLE condition at this time. Remains compliant with medication and diet regimen. All needs have been met, All safety measures in place per hospital policy. Bed in lowest position, side rails up x2, call-light within reach. Will continue to monitor
[2016-11-03 08:00] VITALS: BP 98/61
[2016-11-03] MEDS: GABAPENTIN 300 MG CAPSULE PO SCH ×3 (08:15→21:40)
[2016-11-03] MEDS: MULTIVITAMINS,THERAPEUTIC TABLET PO SCH (08:16)
[2016-11-03] MEDS: CLONIDINE HCL 0.1 MG TABLET PO SCH ×4 (08:16→21:41)
[2016-11-03] MEDS: BACLOFEN 20 MG TABLET PO SCH ×3 (08:16→21:41)
[2016-11-03] MEDS ORDERED: DIAZEPAM 5 MG TABLET PO SCH (09:00)
[2016-11-03] MEDS ORDERED: BUPRENORPHINE HCL 2 MG TAB.SUBL SL SCH (09:00)
[2016-11-03 12:08] VITALS: BP 114/61
[2016-11-03] MEDS ORDERED: IBUP-1955 PO (15:11)
[2016-11-03] MEDS ORDERED: CLON0.1T14 PO (15:11)
[2016-11-03] MEDS ORDERED: HYDR-3895 PO (15:11)
[2016-11-03] MEDS ORDERED: DIPH50CA37 PO (15:11)
[2016-11-03] MEDS ORDERED: BACL20TA PO (15:11)
[2016-11-03] MEDS ORDERED: GABA-534 PO (15:11)
[2016-11-03] MEDS ORDERED: DICY20TA28 PO (15:11)
[2016-11-03 15:57] LABS: *AMPHETAMINE, URINE NEGATIVE (NEGATIVE); *BARBITURATE, URINE NEGATIVE (NEGATIVE); *CANNABINOID, URINE NEGATIVE (NEGATIVE); *COCCAINE, URINE NEGATIVE (NEGATIVE); *OPIATE, URINE POSITIVE (NEGATIVE); *PHENCYCLIDINE SCREEN,URINE NEGATIVE (NEGATIVE)
[2016-11-03 16:00] VITALS: BP 98/62
--- NOTE | 2016-11-03 18:47 | NUR ---
End of Shift Endorsement given to nightshift nurse. Pt has been admitted for Xanax and Heroin dependence. Pt has been placed on a 5 day Subutex and 4 day Valium taper. Pt is tolerating the tapers and mildly withdrawing AEB COWS 3, CIWA 2 at 1600. Pt did not receive any prn medications. Pt has completed his taper and has been scheduled to be discharged on 11/04/16. All discharge documentation and discharge education has been performed. Pt reports readiness for discharge. Pt has provided urine for UDS. Pt participated in groups and activities. Intake: 2100ml, Void x3, BM x1. PT reports readiness for for discharge. VS WNL. full Code. . PT is alert and oriented x4. Pt is in STABLE condition at this time. Remains compliant with medication and diet regimen. All needs have been met, All safety measures in place per hospital policy. Bed in lowest position, side rails up x2, call-light within reach. Will continue to monitor
[2016-11-03 20:00] VITALS: BP 98/55
--- NOTE | 2016-11-03 20:05 | NUR ---
Start of shift report: Received patient resting in bed with eyes closed. Patient is a 21 year old male admitted on 10/28/16 for Benzo and Opiate withdrawals. Patient was placed on a 5 day Subutex taper and 4 day Valium taper, no adverse reactions noted. Patient reported history of anxiety and seizure d/t withdrawals 1 year ago. Patient's CIWA score is 2/COWS score is 2 . Patient vital signs are stable. Will continue with current plan of care. Patient is on fall and seizure precautions. Bed in lowest position, call light within reach. Will continue to monitor patient.
[2016-11-04 00:40] VITALS: BP 103/55
[2016-11-04 04:27] VITALS: BP 88/52
--- NOTE | 2016-11-04 07:08 | NUR ---
EOS report: Patient had a uneventful night. 21 y/o male admitted for Xanax, Heroin and Subutex dependency. Patient completed Valium/Subutex taper. Patient current COWS score is 2 and CIWA score is 2. Vital signs remains stable. No PRN medication given. Patient slept 4 hrs and 15 minutes. Patient is scheduled for discharged today. No other concerns at this time. All needs were met. Fall precaution maintained. Will endorse to oncoming shift to follow up care.
--- NOTE | 2016-11-04 07:10 | NUR ---
Start of Shift Notes: Received patient in his room. Alert and oriented x 4. Verbally responsive. Able to make needs known. Respirations even and unlabored. No SOB noted. Skin warm and dry to touch. Abdomen soft and non-distended with (+) BS in all 4 quadrants. No complains of N/V/D or constipation noted. Voids independently. Ambulatory ad rekha with steady gait. Patient is a 21 year old male admitted for BZO and opiate dependence who was placed on a 5-day SUbutex and 4-day Valium taper as ordered. No adverse reactions noted. Has past medical hx of anxiety and seizures due to withdrawal 1 year ago. Prior to admission, patient was using 9-12 mg of Xanax, intermittent use of Ativan, Heroin, methamphetamine and 16 mg of Subutex x 1 month. NKA. FULL CODE. Regular diet. On fall and seizure precautions. Patient will be discharging today to [place]. Educated patient on the discharge process and medication regimen. Patient verbalized good understanding. All needs met and attended. Will continue to monitor closely.
[2016-11-04 08:00] VITALS: BP 104/84
[2016-11-04 08:30] VITALS: BP 104/84
[2016-11-04] MEDS: CLONIDINE HCL 0.1 MG TABLET PO SCH (08:30)
[2016-11-04] MEDS: MULTIVITAMINS,THERAPEUTIC TABLET PO SCH (08:30)
[2016-11-04] MEDS: GABAPENTIN 300 MG CAPSULE PO SCH (08:30)
[2016-11-04] MEDS: BACLOFEN 20 MG TABLET PO SCH (08:31)
--- NOTE | 2016-11-04 09:56 | NUR ---
Discharged: due to mild anxiety related to the discharge. Patient was left the unit at this time in stable condition. VS stable. All clothings, medications and valuables were returned to the patient and placed inside the duffel bag. Educated patient on his discharge instructions and patient verbalized good understanding. Will continue to monitor. Addendum: 11/04/16 at 1009 by JENNIFER ARZOLA LVN Patient left the unit at [id number]. Picked up by [facility] to be transported to [place].
== END 2016-11-04 09:56 | DRG 895 ==
LOC: SRC 19:20
PROVIDERS: ADMIT Internal Medicine; ATTEND Internal Medicine
PROC: HZ2ZZZZ Detoxification Services for Substance Abuse Treatment (ICD-10-PCS; principal; 2016-10-28)
PROC: HZ41ZZZ Group Counseling for Substance Abuse Treatment, Behavioral (ICD-10-PCS; 2016-10-31)
DX: F11.23 Opioid dependence with withdrawal (principal); R17 Unspecified jaundice; I15.9 Secondary hypertension, unspecified; F15.188 Other stimulant abuse with other stimulant-induced disorder; F13.229 Sedative, hypnotic or anxiolytic dependence with intoxication, unspecified; Z59.1 Inadequate housing; F17.210 Nicotine dependence, cigarettes, uncomplicated; F41.9 Anxiety disorder, unspecified; F32.9 Major depressive disorder, single episode, unspecified
CPT/HCPCS: 36415; 70030-TC; 80307; 80324; 80345; 80346; 80361; 83735; 85025; 86580; 86592; 86705; 86803; 87340; 87806; G0480; Q0162; Q0163